=== PATIENT | female | born 1965 | race Caucasian/White ===

== ENCOUNTER → 2023-09-02 09:47 | Outpatient (REF) | payer OTHER, SELFPAY | LOC: HWRAD 09:47 | PROVIDERS: ATTENDING PHYSICIAN Physician Assistant; FAMILY PHYSICIAN Family Medicine | DX: R10.9 Unspecified abdominal pain (principal); K76.89 Other specified diseases of liver | CPT/HCPCS: 76700 ==

== ENCOUNTER → 2023-12-12 10:24 | Outpatient (REF) | payer OTHER, SELFPAY | LOC: HWRAD 10:24 | PROVIDERS: ATTENDING PHYSICIAN Nurse Practitioner Family; FAMILY PHYSICIAN Family Medicine | DX: R22.1 Localized swelling, mass and lump, neck (principal) | CPT/HCPCS: 76536 ==

== ENCOUNTER 2024-11-15 19:20 | Emergency (ER) | payer OTHER, SELFPAY ==
[2024-11-15 19:21] VITALS: BP 131/77
[2024-11-15 19:39] LABS: % Basophils 0.9 % (0-2); % Eosinophils 2.6 % (0-6); % Immature Granulocytes 0.1 % (0-0.5); % Lymphocytes 44.7 % (20.5-51.1); % Monocytes 7.2 % (1.7-9.3); % Neutrophils 44.5 % (42.2-75.2); Absolute Basophils 0.1 10^3/uL (0-0.2); Absolute Eosinophils 0.2 10^3/uL (0-0.7); Absolute Lymphocytes 3.5 10^3/uL (1.2-3.4); Absolute Monocytes 0.6 10^3/uL (0.1-0.6); Absolute Neutrophils 3.4 10^3/uL (1.4-6.5); Hematocrit 42.1 % (37.0-47.0); Hemoglobin 14.1 g/dL (12.0-16.0); Mean Corp Hgb Conc. 33.5 g/dL (33.0-37.0); Mean Corpuscular Hgb 30.2 pg (27.0-31.0); Mean Corpuscular Volume 90.1 fL (81.0-99.0); Mean Platelet Volume 10.3 fL (7.4-10.4); Nucleated Red Blood Cells % 0 %; Platelet Count 261 10^3/uL (130-400); Red Blood Cell Count 4.67 10^6/uL (4.20-5.40); Red Cell Dist. Width 13.1 % (11.5-14.5); White Blood Cell Count 7.7 10^3/uL (4.8-10.8)
[2024-11-15 20:00] LABS: ALT (SGPT) 15 U/L (0-35); AST (SGOT) 18 U/L (14-36); Albumin 4.5 g/dl (3.5-5.0); Alkaline Phosphatase 63 U/L (38-126); Blood Urea Nitrogen 17 mg/dl (7-17); Calcium 9.6 mg/dl (8.4-10.2); Carbon Dioxide 20 mmol/L (22-30); Chloride 114 mmol/L (98-107); Glucose 104 mg/dl (70-99); Lipase 243 U/L (23-300); Potassium 4.7 mmol/L (3.5-5.1); Sodium 142 mmol/L (135-145); Total Bilirubin 0.5 mg/dl (0.2-1.3); Total Protein 6.9 g/dl (6.3-8.2); eGFR > 60.00
[2024-11-15 21:49] VITALS: BP 126/84
--- NOTE | 2024-11-15 23:59 | ED.GENMED ---
History of Present Illness
General
Chief Complaint: Back Pain
Source: patient
Exam Limitations: none
Time Seen by Provider: 11/15/24 23:55
Nursing documentation reviewed up to this point in time: agreed with
History of Present Illness
History of Present Illness:
This is a 59-year-old female with a past medical history of liver cysts, presents emergency department today with concerns of pain in her low back. Patient reports that this has been going on on and off for years. Patient reports that she feels
the pain in her low back as a band reports that the pain is worse on the right side. Patient reports that when this first started she had CAT scans done and was diagnosed with cysts in her liver. She was told that cyst in her liver was so large
that this was likely the cause of her pain. She had surgery to have fluid drained from the cyst and that did not resolve her pain. She saw a different needle loom operator and was told that the cyst due to back pain and was told that her back pain
is likely from something else. She reports that from time to time, she will come the emergency department and she will get IV medications to the back pain and then she will go home. Patient reports that this current episode of pain occurred a few
days ago when she twisted her back and felt the pain come on again. Patient denies any clear inciting injury or falls. Patient denies any genital paresthesias, and or urinary or fecal incontinence, any lower extremity weakness, any radiation of
the pain down the legs. She denies any fevers or chills. She denies any abdominal pain. She denies any dysuria or hematuria. Patient is also concerned about an itching sensation she started to have on her right lateral leg the past few days.
This has since resolved. She denies any herpetic rash.
Past History
Past History
ED Past Medical History: Other (Liver cysts)
ED Past Surgical History: Appendectomy
Social History
Tobacco: Non-smoker
Review of Systems
Review of Systems
All Other Systems: ROS reviewed and negative except as documented in HPI and ROS
Phy Exam
Physical Exam
Physical Exam:
General: Patient is well appearing and in no acute distress; non-toxic
Skin: Warm and dry, no rashes or lesions
Head: Normocephalic, atraumatic
Eyes: Sclera non-icteric. EOMs intact.
Cardiac: Regular rate and rhythm, no murmur
Pulm: Normal respiratory effort
Abdomen: No abdominal tenderness to palpation
Musculoskeletal: No midline spinal tenderness. Right-sided para lumbar tenderness noted.
Neuro: CN II-XII intact, no focal neurologic deficits.
Psychiatric: Appropriate mood and affect.
Course
Orders/Labs/Results
Orders:
Orders
11/15/24 19:32
Complete Blood Count/With Diff Urgent
Comprehensive Metabolic Panel Urgent
Lipase Urgent
11/15/24 19:33
Urinalysis Reflex To Culture Urgent
Date Specimen was Collected: 11/15/24
Time Specimen was Collected: 19:33
11/16/24 00:01
CR Lumbar Spine 2 Or 3 Views Urgent
Reason For Exam: pain
11/16/24 00:52
Cyclobenzaprine HCl [Flexeril] 10 mg PO NOW STA
Ketorolac [Toradol] 30 mg IM NOW STA
Abnormal Lab Results
11/15/24
19:32
Absolute Lymphs (auto) 3.5 H 10^3/uL
(1.2-3.4)
Chloride 114 H mmol/L
(98-107)
Carbon Dioxide 20 L mmol/L
(22-30)
Glucose 104 H mg/dl
(70-99)
11/15/24 19:32
11/15/24 19:32
Vital Signs
Initial and Last Documented VS:
Initial Vital Signs
Temp Pulse Resp BP Pulse Ox
98.3 F 91 19 131/77 100
11/15/24 19:21 11/15/24 19:21 11/15/24 19:21 11/15/24 19:21 11/15/24 19:21
Last Documented Vital Signs
Temp Pulse Resp BP Pulse Ox
98.3 F 69 18 126/84 100
11/15/24 19:21 11/15/24 21:49 11/15/24 21:49 11/15/24 21:49 11/15/24 21:49
MDM/Problems Addressed
Differential Diagnosis Includes:
Differentials include lumbar sprain, osteoarthritis, herniated disc
MDM/Problems Addressed:
This is a 59-year-old female with a past medical history of liver cysts, presents emergency department today with concerns of pain in her low back. Patient reports that this has been going on on and off for years. Patient reports that she feels
the pain in her low back as a band reports that the pain is worse on the right side. On physical exam, she does have right-sided paralumbar tenderness noted. She has no midline spinal tenderness. Her lumbar spinal x-ray does not show any evidence
of any acute abnormalities. Urinalysis does not show any acute blood. Suspect lumbar sprain. Patient given Toradol and muscle relaxant. Patient demonstrates steady gait. Patient was concerned about an itching sensation she is been having in her
right upper and lower extremity. Patient was requesting blood work. She was concerned about her kidney and liver function. Her CBC and CMP is unremarkable. Recommended getting a second opinion from Ortho. Patient stable for discharge
*Pulse Oximetry
Patient hypoxic: no
*Critical Care Note
Total Time (30-74mins, 75-104mins- exclusive of procedures): Not Applicable
Data Reviewed
Review of Other/Old Records Reveals: Records (Reviewed ER physician mentation from 10/10/2020 patient seen for similar symptoms she had CT scan no evidence of)
Source: patient and records
Patient Management
Escalation/DeEscalation of care consider admission/obs:
Admit not indicated patient stable for discharge
ED Attending Note
-
Portions of this chart may have been created with voice recognition software.� Occasional wrong word or��sound alike� substitutions may have occurred due to the inherent limitations of voice recognition software.
Discharge Plan
Departure
Patient Disposition: Home (Routine Discharge)
Date of Disposition: 11/16/24
Time of Disposition: 01:12
Patient with high blood pressure during this ER visit?: Yes
Condition: Good
Discharge Problem:
Low back pain, Lumbar spine strain
Instructions: Low Back Pain (DC), BLOOD PRESSURE
Prescriptions:
New
cyclobenzaprine 15 mg capsule,extended release 24hr
15 mg PO DAILY 10 Days Qty: 10 0RF
No Action
naproxen 250 MG tablet
250 mg PO BIDPRN PRN (Reason: pain)
oxycodone 5 MG tablet
5 mg PO Q4HPRN PRN (Reason: Pain) Qty: 15 0RF
Referrals:
Sascha Moreno, [Non-Admitting Privileges, Orthopedics]
Jaime Harris MD [Family Provider, Family Practice]
Activity Restrictions/Additional Instructions:
Please follow-up with your primary care provider and your GI doctor. Please call attached number to schedule appointment with the orthopedist for second opinion.
As discussed, your blood work is unremarkable. Your urinalysis is negative and does not show any signs of infection or occult blood. Your lumbar spine x-ray shows no bony abnormalities.
You are given a Toradol injection today in the emergency department.
Cyclobenzaprine, a muscle relaxant, has been sent to your pharmacy. You can take 1 tablet once nightly for your spasms. PLEASE RETURN EMERGENCY DEPARTMENT SHOULD YOU DEVELOP URINARY OR FECAL INCONTINENCE, INABILITY AMBULATE, FEVERS OR CHILLS,
BLOOD IN YOUR URINE, ANY OTHER SIGNS OR SYMPTOMS WORRISOME TO YOU.
Interventions
Interventions:
*Risk Screen - Suicide Last Done: 11/15/24 19:21
*General Assessment Last Done: 11/16/24 01:17
*Neglect/Abuse Screening Last Done: 11/15/24 19:21
*ED- Fall Risk Assessment Last Done: 11/16/24 01:17
*ED COVID-19 Vaccine History Last Done: 11/16/24 01:17
*Nursing Disposition Last Done: 11/16/24 01:25
ED-Musculoskeletal Assessment Last Done: 11/16/24 01:17
Discharge Date and Time
Discharge Date/Time: 11/16/24 01:26
Print Language: [place]
[2024-11-16 00:51] LABS: Urine Albumin Negative (Neg - Trace); Urine Bilirubin Negative (Negative); Urine Character Clear (Clear); Urine Color Yellow; Urine Glucose Negative (Negative); Urine Ketone Negative (Negative); Urine Leukocyte Negative (Negative); Urine Nitrite Negative (Negative); Urine Occult Blood Negative (Negative); Urine Specific Gravity 1.025 (<1.030); Urine Urobilinogen Negative (Neg - 1+)
[2024-11-16] MEDS: FLEXERIL 10 MG PO (01:03)
[2024-11-16] MEDS: TORADOL 30 MG IM (01:03)
== END 2024-11-16 01:26 | disposition home or self-care (01) ==
LOC: EMR 19:20
PROVIDERS: Emergency Medicine; EMERGENCY PHYSICIAN Emergency Medicine; FAMILY PHYSICIAN Family Medicine
DX: S39.012A Strain of muscle, fascia and tendon of lower back, initial encounter (principal); M54.50 Low back pain, unspecified; X58.XXXA Exposure to other specified factors, initial encounter; Z90.49 Acquired absence of other specified parts of digestive tract
CPT/HCPCS: 99283; 96372; 72100; 80053; 81003; 83690; 85025

== ENCOUNTER 2025-02-12 11:47 | Emergency (ER) | payer OTHER, SELFPAY ==
[2025-02-12 11:51] VITALS: BP 137/84
[2025-02-12 12:15] LABS: Hematocrit 41.8 % (37.0-47.0); Hemoglobin 13.9 g/dL (12.0-16.0); Mean Corp Hgb Conc. 33.3 g/dL (33.0-37.0); Mean Corpuscular Volume 91.7 fL (81.0-99.0); Nucleated Red Blood Cells % 0 %; Platelet Count 295 10^3/uL (130-400); Red Cell Dist. Width 12.8 % (11.5-14.5)
[2025-02-12 12:35] LABS: ALT (SGPT) 17 U/L (0-35); AST (SGOT) 21 U/L (14-36); Albumin 4.6 g/dl (3.5-5.0); Alkaline Phosphatase 63 U/L (38-126); Blood Urea Nitrogen 15 mg/dl (7-17); Calcium 9.6 mg/dl (8.4-10.2); Carbon Dioxide 24 mmol/L (22-30); Chloride 111 mmol/L (98-107); Glucose 101 mg/dl (70-99); Potassium 4.7 mmol/L (3.5-5.1); Sodium 141 mmol/L (135-145); Total Protein 6.9 g/dl (6.3-8.2); eGFR > 60.00
--- NOTE | 2025-02-12 15:56 | ED.GENMED ---
History of Present Illness
General
Chief Complaint: Dizziness
Time Seen by Provider: 02/12/25 15:39
History of Present Illness
History of Present Illness:
59-year-old female presents to the emergency department for evaluation of persistent positional dizziness that has been ongoing for the past several weeks. She states it began while she was exercising, she sat up from a supine position and felt
dizzy. Since that time she has had frequent dizziness with any position changes but the symptom is very brief and short-lived and does not last throughout the day. She describes having a severe case of vertigo approximate 20 years ago and this
feels different. No visual changes, neck pain, fever, or chills. Denies any headache. Not dizzy at present. She also notes that she has been having persistent right upper arm pain for the past several months, has not been evaluated for this.
Able to exercise with her arms without increase in pain
Past History
Past History
ED Past Medical History: Other (Liver cysts)
ED Past Surgical History: Appendectomy
Social History
Tobacco: Non-smoker
Review of Systems
Review of Systems
Allergies reviewed?: Yes
All Other Systems: ROS reviewed and negative except as documented in HPI and ROS
Phy Exam
Physical Exam
Physical Exam:
GEN: Well appearing, NAD, WDWN
HEENT: Oral mucosa moist, no scleral icterus
Cardiac: Regular rate
Lung: No respiratory distress, no tachypnea
MSK: No gross deformity or injuries. Normal R shoulder ROM, no palpable tenderness or masses
Skin: Good color, no pallor or jaundice, no rashes
Neuro: AO x3, moves all extremities freely. Cranial nerves II through XII grossly intact. Jaya maneuver non provocative
Psych: Calm, cooperative
Course
Orders/Labs/Results
Orders:
Orders
02/12/25 11:53
Electrocardiogram (*1) Urgent
Reason for Study: Vertigo / Dizzy
CT Head W/o Iv Contrast Urgent
Comment:
Reason For Exam: dizziness x3 weeks, vomiting
02/12/25 11:54
EKG- Treatment ONCE
02/12/25 12:06
Complete Blood Count/With Diff Urgent
Comprehensive Metabolic Panel Urgent
02/12/25 15:56
CR Humerus - Right Min 2 View* Urgent
Comment:
Reason For Exam: R upper arm pain
Abnormal Lab Results
02/12/25
12:06
Chloride 111 H mmol/L
(98-107)
Glucose 101 H mg/dl
(70-99)
02/12/25 12:06
02/12/25 12:06
Vital Signs
Initial and Last Documented VS:
Initial Vital Signs
Temp Pulse Resp BP Pulse Ox
97.1 F 83 18 137/84 99
02/12/25 11:51 02/12/25 11:51 02/12/25 11:51 02/12/25 11:51 02/12/25 11:51
Last Documented Vital Signs
Temp Pulse Resp BP Pulse Ox
97.1 F 65 18 123/73 98
02/12/25 11:51 02/12/25 17:14 02/12/25 17:14 02/12/25 17:14 02/12/25 17:14
MDM/Problems Addressed
MDM/Problems Addressed:
I was unable to provoke patient's dizziness while in the emergency department, nevertheless this sounds like BPPV given intermittent positional nature to the symptoms. Given that is been ongoing for the past several weeks but is quite mild in
nature I do not think Antivert type medications will be of any benefit thus will refer to outpatient physical therapy. In regards to her right arm pain I suspect this is cervical radiculopathy as her right humerus x-rays were negative
*Pulse Oximetry
SaO2: 99
Oxygen Mode of Delivery: Room air
Patient hypoxic: no
*Critical Care Note
Total Time (30-74mins, 75-104mins- exclusive of procedures): Not Applicable
Update Note
Update Note:
EKG independently interpreted by me shows normal sinus rhythm at a rate of [address] changes
ED Attending Note
-
Portions of this chart may have been created with voice recognition software.� Occasional wrong word or��sound alike� substitutions may have occurred due to the inherent limitations of voice recognition software.
Discharge Plan
Departure
Patient Disposition: Home (Routine Discharge)
Date of Disposition: 02/12/25
Time of Disposition: 17:07
Patient with high blood pressure during this ER visit?: No
Discharge Problem:
Benign paroxysmal positional vertigo
Instructions: Vertigo (a type of dizziness)
Prescriptions:
No Action
naproxen 250 MG tablet
250 mg PO BIDPRN PRN (Reason: pain)
oxycodone 5 MG tablet
5 mg PO Q4HPRN PRN (Reason: Pain) Qty: 15 0RF
cyclobenzaprine 15 mg capsule,extended release 24hr
15 mg PO DAILY 10 Days Qty: 10 0RF
Referrals:
UNKNOWN - PT DOES,NOT KNOW [Family Provider]
Interventions
Interventions:
*Risk Screen - Suicide Last Done: 02/12/25 11:51
*General Assessment Last Done: 02/12/25 11:51
*Neglect/Abuse Screening Last Done: 02/12/25 11:51
*ED COVID-19 Vaccine History Last Done: 02/12/25 11:51
*Nursing Disposition Last Done: 02/12/25 17:14
ED- Neurological Assessment Last Done: 02/12/25 15:45
ED- Cardiac Assessment Last Done: 02/12/25 15:45
Discharge Date and Time
Discharge Date/Time: 02/12/25 17:14
Print Language: [place]
[2025-02-12 17:14] VITALS: BP 123/73
== END 2025-02-12 17:14 | disposition home or self-care (01) ==
LOC: EMR 11:47
PROVIDERS: Emergency Medicine; EMERGENCY PHYSICIAN Emergency Medicine
DX: H81.10 Benign paroxysmal vertigo, unspecified ear (principal)
CPT/HCPCS: 99284; 70450; 73060; 80053; 85025; 93005

== ENCOUNTER 2025-03-10 07:05 | Outpatient (RCR) | payer OTHER, SELFPAY | END 2025-03-10 23:59 | disposition home or self-care (01) | LOC: RPT 07:05 | PROVIDERS: ATTENDING PHYSICIAN Family Medicine | DX: R42 Dizziness and giddiness (principal); Z73.6 Limitation of activities due to disability | CPT/HCPCS: 97112; 97163 ==